=== PATIENT | male | born 1990 | race Caucasian/White ===

== ENCOUNTER 2016-06-14 07:29 | Emergency (ER) | payer MEDICAID ==
[~2016-06-14] VITALS: Ht 167.6 cm; Wt 98.6 kg
[2016-06-14 07:31] VITALS: BP 161/101; TEMP 98.4
[2016-06-14] MEDS ORDERED: CHANTIX 1MG1 MG PO (07:38)
[2016-06-14 08:28] VITALS: PULSE 80
== END 2016-06-14 08:30 | disposition home or self-care (01) ==
LOC: COL.ER 07:29
DX: M79.671 Pain in right foot (principal)